=== PATIENT | male | born 1980 | race Caucasian/White ===

== ENCOUNTER 2021-02-09 17:09 | Emergency (ER) | payer MEDICAID ==
[~2021-02-09] VITALS: Ht 175.3 cm; Wt 90.7 kg
[2021-02-09 17:13] VITALS: BP 137/85
== END 2021-02-09 18:33 | disposition left against medical advice (07) ==
LOC: ER 17:09
DX: R10.9 Unspecified abdominal pain (principal); R11.2 Nausea with vomiting, unspecified; R19.7 Diarrhea, unspecified; Z53.21 Procedure and treatment not carried out due to patient leaving prior to being seen by health care provider